=== PATIENT | male | born 1990 | race African-American/Black ===

== ENCOUNTER → 2019-12-30 | Emergency (ER) | payer OTHER ==
[~2019-12-30] VITALS: Ht 180.3 cm; Wt 85.7 kg
[2019-12-30 19:27] LABS: Hematocrit 43.8 % (41.0-53.0); Hemoglobin 14.7 g/dL (13.5-17.5); Mean Corpuscular Hemoglobin 27.4 pg (28.0-32.0); Mean Corpuscular Hgb Conc. 33.6 g/dL (32.0-36.0); Mean Corpuscular Volume 81.4 fL (80.0-100.0); Platelet Count (auto) 177 10^3/uL (140-450); Red Blood Cells 5.38 10^6/uL (4.5-5.90); Red Cell Distribution Width 13.9 % (11.8-14.3); White Blood Cell 4.5 10^3/uL (4.4-10.8)
[2019-12-30 19:31] LABS: Band Neutrophils % (manual) 0; Basophils % (manual) 0 (0.0-2.0); Blast Cells 0; Eosinophils % (manual) 0 (0-7); Metamyelocytes % 0; Myelocytes % 0; Promyelocytes % 0; Reactive Lymphocytes 0
[2019-12-30 19:39] LABS: INR 1.04 (0.9-1.15); Partial Thromboplastin Time 28.4 sec (23.0-31.2)
[2019-12-30 19:44] LABS: Albumin 4.4 g/dL (3.4-5.0); Anion Gap 4 (5-15); Blood Urea Nitrogen 12 mg/dL (7-18); Carbon Dioxide 28 mmol/L (21-32); Chloride 108 mmol/L (98-107); Glucose 90 mg/dL (74-106); Magnesium 2.3 mg/dL (1.6-2.6); Potassium 3.5 mmol/L (3.5-5.1); Sodium 140 mmol/L (136-145)
[2019-12-30 19:51] LABS: Alanine Aminotransferase 52 U/L (16-61); Alkaline Phosphatase 71 U/L (45-117); Aspartate Aminotransferase 24 U/L (15-37); BUN/Creatinine Ratio 10.3; Bilirubin, Total 0.4 mg/dL (0.2-1.0); GFR African American 97 mL/min; GFR Non-African American 80 mL/min; Total Protein 8.3 g/dL (6.4-8.2)
[2019-12-30 20:42] LABS: Lymphocytes % (manual) 65 (10.0-50.0); Monocytes % (manual) 7 (0-12)
[2019-12-30 21:38] VITALS: BP 140/87
== END | disposition home or self-care (01) ==
LOC: ER 18:27
DX: R07.89 Other chest pain (principal); I10 Essential (primary) hypertension
CPT/HCPCS: 36415; 71045; 80053; 83735; 83880; 84443; 84484; 85007; 85027; 85379; 85610; 85730

== ENCOUNTER 2020-10-12 02:46 | Emergency (ER) | payer OTHER ==
[~2020-10-12] VITALS: Ht 180.3 cm; Wt 85.7 kg
[2020-10-12 03:46] LABS: Hematocrit 41.3 % (41.0-53.0); Hemoglobin 13.8 g/dL (13.5-17.5); Mean Corpuscular Hemoglobin 27.3 pg (28.0-32.0); Mean Corpuscular Hgb Conc. 33.3 g/dL (32.0-36.0); Mean Corpuscular Volume 82.2 fL (80.0-100.0); Platelet Count (auto) 195 10^3/uL (140-450); Red Blood Cells 5.03 10^6/uL (4.5-5.90); Red Cell Distribution Width 14.6 % (11.8-14.3); White Blood Cell 4.6 10^3/uL (4.4-10.8)
[2020-10-12 04:07] LABS: Albumin 4.4 g/dL (3.4-5.0); Anion Gap 8 (5-15); Calcium 8.9 mg/dL (8.5-10.1); Carbon Dioxide 25 mmol/L (21-32); Chloride 106 mmol/L (98-107); Potassium 3.5 mmol/L (3.5-5.1); Sodium 139 mmol/L (136-145)
[2020-10-12 04:10] LABS: Band Neutrophils % (manual) 0; Basophils % (manual) 0 (0.0-2.0); Blast Cells 0; Metamyelocytes % 0; Myelocytes % 0; Promyelocytes % 0
[2020-10-12 04:15] LABS: Alanine Aminotransferase 27 U/L (16-61); Alkaline Phosphatase 51 U/L (45-117); Aspartate Aminotransferase 25 U/L (15-37); BUN/Creatinine Ratio 12.8; Bilirubin, Total 0.3 mg/dL (0.2-1.0); Blood Urea Nitrogen 16 mg/dL (7-18); GFR African American 88 mL/min; GFR Non-African American 73 mL/min; Glucose 90 mg/dL (74-106); Magnesium 2.4 mg/dL (1.6-2.6); Total Protein 7.9 g/dL (6.4-8.2)
[2020-10-12 04:29] LABS: INR 1.06 (0.9-1.15); Partial Thromboplastin Time 27.1 sec (23.0-31.2)
[2020-10-12 04:39] LABS: Eosinophils % (manual) 2 (0-7); Lymphocytes % (manual) 58 (10.0-50.0); Monocytes % (manual) 13 (0-12); Reactive Lymphocytes 2
[2020-10-12 06:00] VITALS: BP 132/76
== END 2020-10-12 06:09 | disposition home or self-care (01) ==
LOC: ER 02:46
DX: R00.2 Palpitations (principal); I10 Essential (primary) hypertension
CPT/HCPCS: 36415; 71045; 80053; 83735; 83880; 84443; 84484; 85007; 85027; 85049; 85610; 85730; 93005

== ENCOUNTER 2021-02-08 08:44 | Emergency (ER) | payer OTHER ==
[~2021-02-08] VITALS: Ht 180.3 cm; Wt 81.2 kg
[2021-02-08 08:55] VITALS: BP 129/94
[2021-02-08 09:24] LABS: Urine WBC None Seen /hpf (0 - 3)
[2021-02-08 09:37] LABS: Hemoglobin 14.6 g/dL (13.5-17.5); White Blood Cell 3.6 10^3/uL (4.4-10.8)
[2021-02-08 09:37] LABS: Urine Bacteria NONE SEEN /hpf (None Seen); Urine Blood Negative /uL (Negative); Urine Specific Gravity 1.003 (1.001-1.035)
[2021-02-08 09:38] LABS: Hematocrit 44.1 % (41.0-53.0); Mean Corpuscular Hemoglobin 26.8 pg (28.0-32.0); Mean Corpuscular Hgb Conc. 33.1 g/dL (32.0-36.0); Mean Corpuscular Volume 80.9 fL (80.0-100.0); Red Blood Cells 5.46 10^6/uL (4.5-5.90); Red Cell Distribution Width 13.6 % (11.8-14.3)
[2021-02-08 09:44] LABS: Basophils % (manual) 0 (0.0-2.0); Blast Cells 0; Metamyelocytes % 0; Myelocytes % 0; Promyelocytes % 0
[2021-02-08 09:50] LABS: Calcium 8.8 mg/dL (8.5-10.1)
[2021-02-08 09:52] LABS: BUN/Creatinine Ratio 11.4
[2021-02-08 09:56] LABS: Bilirubin, Total 0.2 mg/dL (0.2-1.0); Total Protein 8.1 g/dL (6.4-8.2)
[2021-02-08 11:10] LABS: Alcohol, Urine < 3.0 mg/dL (0-10); Amphetamine Screen, Urine NEGATIVE (NEGATIVE); Barbiturate Scree,Urine NEGATIVE (NEGATIVE); Benzodiazephine Screen, Urine NEGATIVE (NEGATIVE); Cannabinoid Screen, Urine NEGATIVE (NEGATIVE); Cocaine Screen, Urine NEGATIVE (NEGATIVE); Opiate Scree,Urine NEGATIVE (NEGATIVE); Phencyclidine Screen, Urine NEGATIVE (NEGATIVE)
[2021-02-08] MEDS ORDERED: IOHEXOL 350 MG/ML 100ML IJ ONE (13:47)
[2021-02-08 14:59] LABS: Band Neutrophils % (manual) 1; Eosinophils % (manual) 1 (0-7); Lymphocytes % (manual) 46 (10.0-50.0); Monocytes % (manual) 8 (0-12); Reactive Lymphocytes 14
== END 2021-02-08 17:41 | disposition left against medical advice (07) ==
LOC: ER 08:44
DX: I48.91 Unspecified atrial fibrillation (principal); I10 Essential (primary) hypertension; Z53.29 Procedure and treatment not carried out because of patient's decision for other reasons
CPT/HCPCS: 36415; 71046; 71275; 80053; 80307; 81001; 83880; 84443; 84484; 85007; 85027; 93005; 99285; Q9967